=== PATIENT | female | born 1995 | race Caucasian/White ===

== ENCOUNTER 2019-10-27 23:26 | Emergency (ER) | payer OTHER ==
[~2019-10-27] VITALS: Ht 165.1 cm; Wt 61.2 kg
== END 2019-10-28 12:09 | disposition home or self-care (01) ==
LOC: ER 23:26
DX: E86.0 Dehydration (principal); Z03.818 Encounter for observation for suspected exposure to other biological agents ruled out; R19.7 Diarrhea, unspecified; R10.84 Generalized abdominal pain

== ENCOUNTER 2021-03-24 20:09 | Emergency (ER) | payer OTHER ==
[~2021-03-24] VITALS: Ht 165.1 cm; Wt 59.0 kg
== END 2021-03-24 22:17 | disposition home or self-care (01) ==
LOC: ER 20:09
DX: N75.0 Cyst of Bartholin's gland (principal)